=== PATIENT | female | born 1990 | race Hispanic/Latino ===

== ENCOUNTER 2020-09-23 13:56 | Outpatient (CLI) | payer BC ==
[2020-09-23 14:49] LABS: Hematocrit 35.2 % (30.3-42.9); Hemoglobin 12.1 gm/dl (10.1-14.3); Mean Corpuscular HGB Conc 34 % (30-34); Mean Corpuscular Volume 92 fl (79-97); Platelet Count 221 K/mm3 (140-440); Red Blood Count 3.83 M/mm3 (3.65-5.03); Red Cell Distribution Width 12.8 % (13.2-15.2)
[2020-09-23 15:24] LABS: Hepatitis C Virus Antibody Non-Reactive (NonReactive)
== END 2020-09-23 13:57 | disposition home or self-care (01) ==
LOC: LAB 13:56
PROVIDERS: ATTEND Nurse Practitioner Women's Health
DX: Z34.81 Encounter for supervision of other normal pregnancy, first trimester (principal); Z3A.11 11 weeks gestation of pregnancy
CPT/HCPCS: 36415; 85027; 86592; 86706; 86762; 86803; 87806

== ENCOUNTER 2020-12-07 14:15 | Outpatient (CLI) | payer BC | END 2020-12-07 14:16 | disposition home or self-care (01) | LOC: LAB 14:15 | PROVIDERS: ATTEND Nurse Practitioner Women's Health | DX: Z34.82 Encounter for supervision of other normal pregnancy, second trimester (principal); Z3A.14 14 weeks gestation of pregnancy | CPT/HCPCS: 86900; 86901 ==

== ENCOUNTER 2021-01-19 08:49 | Outpatient (CLI) | payer BC ==
[2021-01-19 10:31] LABS: Hematocrit 33.1 % (30.3-42.9); Hemoglobin 11.6 gm/dl (10.1-14.3)
== END 2021-01-19 08:50 | disposition home or self-care (01) ==
LOC: LAB 08:49
PROVIDERS: ATTEND Nurse Practitioner Women's Health
DX: Z34.82 Encounter for supervision of other normal pregnancy, second trimester (principal); Z3A.24 24 weeks gestation of pregnancy
CPT/HCPCS: 36415; 82951; 82962; 85014; 85018

== ENCOUNTER 2021-04-12 12:19 | Outpatient (CLI) | payer BC ==
[2021-05-05 08:20] LABS: HIV-1 Antibody Differentiation SEE SCANNED RESULT; HIV-2 Antibody Differentiation SEE SCANNED RESULT
== END 2021-04-12 12:20 | disposition home or self-care (01) ==
LOC: LAB 12:19
PROVIDERS: ATTEND Nurse Practitioner Women's Health
DX: Z34.83 Encounter for supervision of other normal pregnancy, third trimester (principal); Z30.2 Encounter for sterilization; B97.35 Human immunodeficiency virus, type 2 [HIV 2] as the cause of diseases classified elsewhere; Z3A.35 35 weeks gestation of pregnancy
CPT/HCPCS: 36415; 86592; 86689; 87591

== ENCOUNTER 2021-04-23 08:52 | Inpatient (IN) | payer BC ==
[2021-04-23] MEDS ORDERED: METOCLOPRAMIDE 10 MG/2 ML INJ IV ONE (13:01)
[2021-04-23] MEDS ORDERED: BICITRA ORAL LIQD 30ML PO ONE (13:01)
[2021-04-23] MEDS ORDERED: FAMOTIDINE 20 MG/2 ML INJ IV ONE (13:01)
--- NOTE | 2021-04-23 13:14 | History and Physical Report ---
History of Present Illness Date of examination: 04/23/21 Chief complaint: Labor, breech presentation History of present illness: This is a 31 year-old female at 38 weeks gestation who presents complaining of ROM and contractions. Evaluation was negative for ROM however she had cervical change for 1cm to 3cm. US revealed Breech presentation, will proceed with delivery. EDC Confirmation: 05/06/2021 Gestational Age: 6 6/7 weeks Past History : 3 Term Births: 2 Premature Births: 0 Living Children: 2 Para: 2 Mult. Births: 0 Prev : 0 Prev. attempt? 0 Aborta: 0 Elect. Ab: 0 Spont. Ab: 0 Ectopics: 0 # 1 Delivery date: 04/29/2015 Weeks Gestation: term Delivery type: Vaginal Anesthesia type: epidural Delivery location: [facility] Sex: female weight: 8.13 Name: vesna Comments: none # 2 Delivery date: 07/05/2016 Weeks Gestation: 40 Delivery type: Vaginal Anesthesia type: epidural Delivery location: [facility] Infant Sex: female weight: 8.13 Comments: none Risk Factors: Smoked Tobacco Use: Never smoker Smokeless Tobacco Use: Never Passive smoke exposure: no Drug use: no HIV high-risk behavior: low risk Alcohol use: no Dietary Counseling: pn yes Past Medical History: Reviewed history from 09/02/2014 and no changes required: Asthma--exercise induced Past Surgical History: Reviewed history from 09/02/2014 and no changes required: 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 Past Medical History Abnormal PAP: negative BECKY Exposure: negative Infertility: negative Uterine Anomaly: negative Uterine Surgery (not C/S): negative Other Gynecologic Problems: negative Social Hx: Patient is L&D Mortgage Specialist @ [employer] Smoking History: Patient has never smoked. Infection History Hx of STD: none HIV Risk Eval: low risk Hepatitis B Risk Eval: low risk Personal hx. of genital herpes: no Partner hx. of genital herpes: no Rash, Viral, or Febrile illness since last LMP? no Varicella/Chicken Pox Status: Previous Disease TB Risk: no Genetic History Congenital Heart Defect: Mom: no Dad: no Drew Disease: Mom: no Dad: no Thalassemia Mom: no Dad: no Neural Tube Defect Mom: no Dad: no Down's Syndrome Mom: no Dad: no Get-Sachs Mom: no Dad: no Sickle Cell Disease/Trait Mom: no Dad: no Hemophilia Mom: no Dad: no Muscular Dystrophy Mom: no Dad: no Cystic Fibrosis Mom: no Dad: no Ivonne Chorea Mom: no Dad: no Mental Retardation Mom: no Dad: no Fragile X Mom: no Dad: no Other Genetic/Chromosomal Disorder Mom: no Dad: no Child w/other defect Mom: no Dad: no Enviromental Exposures Enviromental Exposures Reviewed Xray Exposure: no Medication, drug, or alcohol use since LMP: no Chemical/Other Exposure: no Exposure to Cat Liter: no Hx of Parvovirus (Fifth Disease): no Occupational Exposure to Children: none FALSECurrent Allergies: No known allergies hysical Exam General appearance: well nourished, healthy appearing, no distress Chest/Lungs: respiratory effort normal, lungs clear to auscultation Abdomen/GI: soft, nontender Extremities: no discoloration or edema Past History - Obstetrical History Expected Date of Delivery: 05/06/21 Actual Gestation: 38 Week(s) 1 Day(s) : 3 Medications and Allergies Allergies Allergy/AdvReac Type Severity Reaction Status Date / Time No Known Allergies Allergy Verified 04/29/15 05:47 Home Medications Medication Instructions Recorded Confirmed Last Taken Type Omeprazole Magnesium [PriLOSEC Otc] 1 tab PO DAILY 04/29/15 07/05/16 07/04/16 10:00 History Vit-Fe Fumar-FA [ 1 tab PO DAILY 04/29/15 07/05/16 07/03/16 10:00 History Vitamin] Zantac 150 MG TAB 150 mg PO DAILY 07/05/16 07/05/16 07/04/16 10:00 History Ibuprofen [Motrin 800 MG tab] 800 mg PO TID PRN #30 tablet 07/06/16 Unknown Rx Active Meds: Active Medications Citric Acid/Sodium Citrate (Bicitra Oral Liqd 30ml) 30 ml PO ONCE ONE Stop: 04/23/21 13:02 Famotidine (Famotidine 20 Mg/2 Ml Inj) 20 mg IV ONCE ONE Stop: 04/23/21 13:02 Lactated Ringer's (Lactated Ringers) 1,000 mls @ 2,250 mls/hr IV PREOP LAUREANO Stop: 04/24/21 13:42 Oxytocin/Sodium Chloride (Pitocin/Ns 30 Unit/500ml) 30 units in 500 mls @ 0 mls/hr IV TITR LAUREANO; Protocol Cefazolin Sodium (Ancef/Sterile Water 2 Gm/20 Ml) 2 gm in 20 mls @ 80 mls/hr IV PREOP NR; Protocol Metoclopramide HCl (Metoclopramide 10 Mg/2 Ml Inj) 10 mg IV ONCE ONE Stop: 04/23/21 13:02 - Vital Signs Vital signs: Vital Signs Pulse BP 92 H 106/67 04/23/21 09:04 04/23/21 09:04 Temp Pulse Resp BP Pulse Ox 93 H 98/63 99 04/23/21 12:17 04/23/21 10:57 04/23/21 12:17 Results Result Diagrams: 04/23/21 13:14 All other labs normal. Assessment and Plan - Patient Problems (1) 38 weeks gestation of Current Visit: Yes Status: Acute (2) Breech presentation Current Visit: Yes Status: Acute Plan to address problem: Consent reviewed and signed. The risks and alternatives for this surgery were reviewed with the patient. She was informed of possible bleeding, infection, injury to bowel, bladder, ureters or other adjacent organs. The patient was instructed/informed the following: The normal length of hospital stay for this procedure. Nothing to eat or drink after midnight the evening prior to surgery. Patient was given ample opportunity to have all her questions answered before signing informed consent. (3) Active labor Current Visit: No Status: Acute
[2021-04-23] MEDS ORDERED: LACTATED RINGERS 1,000 ML IV SCH (13:15)
[2021-04-23] MEDS ORDERED: ONDANSETRON 4 MG/2 ML INJ ONE ×2 (13:22)
[2021-04-23] MEDS ORDERED: PHENYLEPHRINE/NS 1,000 MCG/10 ML SYRINGE (OR USE) IV ONE ×2 (13:22→14:09)
[2021-04-23 13:34] LABS: Hematocrit 38.3 % (30.3-42.9); Hemoglobin 13.5 gm/dl (10.1-14.3); Mean Corpuscular HGB Conc 35 % (30-34); Mean Corpuscular Volume 91 fl (79-97); Platelet Count 173 K/mm3 (140-440); Red Blood Count 4.22 M/mm3 (3.65-5.03); Red Cell Distribution Width 13.1 % (13.2-15.2)
[2021-04-23] MEDS ORDERED: OXYTOCIN DRIP 30 UNITS/500 ML BAG IV SCH ×2 (14:00→18:18)
[2021-04-23] MEDS ORDERED: ceFAZolin/Water 2 GM/20 ML 2 GM/20 ML SYRINGE IV NR (14:00)
[2021-04-23] MEDS ORDERED: SODIUM CHLORIDE 0.9% IRR 1,500 ML BOTTLE IR ONE (14:12)
[2021-04-23] MEDS ORDERED: WATER FOR IRRIG STERILE 1,500 ML BOTTLE IR ONE (14:12)
[2021-04-23] MEDS ORDERED: dexAMETHasone 20 MG/5 ML VIAL ONE (14:27)
[2021-04-23] MEDS ORDERED: KETOROLAC 30 MG/1 ML INJ ONE (14:27)
[2021-04-23] MEDS ORDERED: BUPIVACAINE/PF (0.25%) 2.5 MG/ML 30 ML VIAL INFILTRATI ONE ×2 (14:32)
--- NOTE | 2021-04-23 15:08 | Operative Report ---
Operative Report Operative Report: Date of procedure: April 23, 2021 Pre-operative diagnosis: Breech Presentation at 38 weeks in active labor Post-operative diagnosis: Same Procedure name(s): Primary low transverse section Surgeon: Jordy Maldonado MD Wrong Address Clerk: Trinidad Chicas, certified nurse upholsterer outside Anesthesia: Spinal EBL: QBL 729 cc Complications: None Findings: Normal uterus tubes and ovaries, male infant breech presentation with loose nuchal cord x1 and a true knot in the umbilical cord. The weight 7 pounds 11 ounces Apgars 8 at 1 minute 9 at 5 minutes Specimen(s): None Procedure: The patient was brought to the operating room. A spinal was placed without any complications. She was then placed in left lateral tilt. Prepped and draped in the usual sterile manner. After testing for adequate anesthesia level, a Pfannenstiel incision was made. This incision was taken down to the fascia. The fascia was then nicked in the midline. This incision was extended out laterally with Gamboa scissors. The fascia was then sharply and bluntly from the underlying rectus muscles. The rectus muscles were bluntly and sharply . The peritoneum was then entered with the trim and burr operator's fingers. This incision was spread vertically with care not to damage the bladder below. Moe retractor was then placed. The bladder flap was then formed sharply and bluntly with Metzenbaum scissors. A transverse incision was made in lower uterine segment. This incision was extended laterally with the operators fingers. The amniotic sac was then entered bluntly with the trim and burr operator's fingers. The was delivered from a footling breech positioning. Both feet were then pulled through the uterine incision followed by delivering the breech. Delivery of the upper extremities was done by first flexing and extending the the upper extremities at the elbows and after coming head was then delivered safely after reducing the loose nuchal cord. The infant was bulb suctioned on the mother's abdomen. Cord was double clamped and cut. The infant was then passed to the nursery personnel who were in attendance. The above scores were given by the nursery personnel. The placenta was then bluntly removed. The uterus was then externalized and wiped clean the remaining products. The uterine incision was closed in layers. The first incision was closed in a locking manner using 0 Vicryl. This was followed by imbricating stitch also with 0 Vicryl. This closure was hemostatic. The bladder flap was copiously irrigated and found to be hemostatic. The pelvis was copiously irrigated and found to be hemostatic. The uterus was then placed back to the patient's abdomen. The retractors were removed. The rectus muscles were inspected and found to be hemostatic. The fascia was then closed in a running manner using 0 Vicryl. This incision was hemostatic irrigation Bovie. The skin was reapproximated with 4-0 Vicryl subcuticularly. Dermabond was placed along the skin closure. The patient tolerated procedure well. Her urine was clear. The infant was admitted to the well baby nursery. The patient was accompanied to recovery room in good condition. Instrument count correct x3.
[2021-04-23] MEDS ORDERED: HYDROmorphone 1 MG/1 ML INJ IV PRN (15:20)
[2021-04-23] MEDS ORDERED: ONDANSETRON 4 MG/2 ML INJ IV PRN ×2 (15:20→18:18)
[2021-04-23] MEDS ORDERED: NALOXONE 0.4 MG/1 ML INJ IV PRN ×2 (15:20→18:18)
--- NOTE | 2021-04-23 15:21 | Anesthesia Day of Surgery ---
Anesthesia Day of Surgery - Day of Surgery Patient Examined: Yes Patient H&P Reviewed: Yes Patient is NPO: Yes Beta Blockers: No Cardiac Clearance: No Pulmonary Clearance: No Tahir's Test: N/A
--- NOTE | 2021-04-23 15:24 | Anesthesia Consultation ---
Anesthesia Consult and Med Hx Date of service: 04/23/21 - Airway Anesthetic Teeth Evaluation: Good ROM Head & Neck: Adequate Mental/Hyoid Distance: Adequate Mallampati Class: Class II Intubation Access Assessment: Probably Good - Pulmonary Exam CTA: Yes - Cardiac Exam Cardiac Exam: RRR - Pre-Operative Health Status ASA Pre-Surgery Classification: ASA2 Proposed Anesthetic Plan: Spinal - Pulmonary Hx Smoking: No Hx Asthma: Yes (excercise indused) Hx Respiratory Symptoms: No SOB: No COPD: No Home Oxygen Therapy: No Hx Pneumonia: No Hx Sleep Apnea: No - Cardiovascular System Hx Hypertension: No Hx Coronary Artery Disease: No Hx Heart Attack/AMI: No Hx Angina: No Hx Percutaneous Transluminal Coronary Angioplasty (PTCA): No Hx Cardia Arrhythmia: No Hx Pacemaker: No Hx Internal Defibrillator: No Hx Valvular Heart Disease: No Hx Heart Murmur: No Hx Peripheral Vascular Disease: No - Central Nervous System Hx Neuromuscular Disorder: No Hx Seizures: No CVA: No Hx Back Pain: No Hx Psychiatric Problems: No - Gastrointestinal Hx Ulcer: No Hx Gastroesophageal Reflux Disease: Yes - Endocrine Hx Renal Disease: No Hx End Stage Renal Disease: No Hx Cirrhosis: No Hx Liver Disease: No Hx Insulin Dependent Diabetes: No Hx Non-Insulin Dependent Diabetes: No Hx Thyroid Disease: No Hx Hypothyroidism: No Hx Hyperthyroidism: No - Hematic Hx Anemia: No Hx Sickle Cell Disease: No - Other Systems Hx Alcohol Use: No Hx Substance Use: No Hx Cancer: No Hx Obesity: Yes
--- NOTE | 2021-04-23 15:26 | Progress Note ---
Spinal Anesthesia Block - Spinal Anesthesia Block Start Time: 13:55 Stop Time: 13:58 Performed by:: NALLELY RODAS Procedure: Patient IDed, H&P reviewed, all questions and concerns were answered, and consent was signed. Timeout was performed at bedside. Patient in sitting position. Sterile prep and drape was performed. [3] ml of 1% lidocaine skin wheal at L[3]- L [4]. Needle introducer advanced. 25 gauge spinal needle advanced. Clear, free flowing CSF. negative blood, negative paresthesia. Spinal dose given. All needles removed. Patient tolerated procedure.
--- NOTE | 2021-04-23 15:32 | Progress Note ---
Regional Anesthesia Block - Regional Anesthesia Block Start Time: 15:21 Stop Time: 15:29 Performed By:: NALLELY RODAS Procedure: Patient consented for TAP block for post surgical pain management. Patient identified, monitors placed, and time out performed. TAP identified bilaterally via ultrasound. Skin prepped bilaterally with [chlorhexidine] and [22g stimuplex] needle advanced to the TAP. [Marcaine 0.25% 30ml] injected under ultrasound guidance on the [left] side. [Marcaine 0.25% 30ml] injected under ultrasound guidance on the [right] side. Negative aspiration every 5mL, No change in heart rate or rhythm. Patient tolerated the procedure well. No apparent complications seen.
[2021-04-23] MEDS ORDERED: D5W/LACTATED RINGERS 1,000 ML IV SCH (18:18)
[2021-04-23] MEDS ORDERED: WITCH HAZEL/ GLYCERIN PAD TP PRN (18:18)
[2021-04-23] MEDS ORDERED: MAGNESIUM HYDROXIDE (MOM) ORAL LIQD UDC PO PRN (18:18)
[2021-04-23] MEDS ORDERED: LANOLIN/ZINC/DIMETHICONE (LANSINOH) 7 GM TP PRN (18:18)
[2021-04-23] MEDS: SIMETHICONE 80 MG CHEW TAB PO PRN (18:46)
[2021-04-23] MEDS: KETOROLAC 30 MG/1 ML INJ IV PRN (20:38)
--- NOTE | 2021-04-23 20:38 | Post Anesthesia Evaluation ---
- Post Anesthesia Evaluation Patient Participated: Yes Airway Patent: Yes Stable Respiratory Function: Yes Nausea/Vomiting: No Temp > 96.8F: Yes Pain Manageable: Yes Adequeate Hydration: Yes Anesthesia Complications: No Block Receding Appropriately: Yes Patient on Ventilator: No
[2021-04-23] MEDS: ceFAZolin/NS 1 GM/50 ML 1 GM/50 ML BAG IV SCH (22:07)
[2021-04-24] MEDS ORDERED: HYDROcodone/ACETAMINOPHEN 5-325 MG TAB PO PRN (00:44)
[2021-04-24] MEDS: HYDROcodone/ACETAMINOPHEN 5-325 MG TAB PO PRN ×2 (00:46→00:47)
[2021-04-24] MEDS: SIMETHICONE 80 MG CHEW TAB PO PRN ×2 (00:46→10:22)
[2021-04-24] MEDS: KETOROLAC 30 MG/1 ML INJ IV PRN (04:05)
[2021-04-24] MEDS: ceFAZolin/NS 1 GM/50 ML 1 GM/50 ML BAG IV SCH (06:06)
[2021-04-24] MEDS ORDERED: MORPHINE 4 MG/1 ML INJ IV PRN ×2 (06:09→06:24)
--- NOTE | 2021-04-24 06:33 | Event Note ---
Date: 04/24/21 (Severe pain) Was called by the RN d/t patient stating that pain medication that was given was not helping with pain. Went to room and spoke with patient. Having abdominal pain. Abdomen soft, incision with no drainage at this time. Consulted with Dr. Maldonado and Faith HENRY. Will order Morphine IV and change [place] to Percocet. Pt and RN aware of medication changes. Will continue to observe pain control.
[2021-04-24] MEDS: PANTOPRAZOLE 20 MG TAB PO SCH (08:03)
[2021-04-24 08:18] LABS: Hematocrit 30.5 % (30.3-42.9); Hemoglobin 10.6 gm/dl (10.1-14.3)
[2021-04-24] MEDS ORDERED: FERROUS SULFATE 325 MG TAB PO SCH (10:00)
[2021-04-24] MEDS ORDERED: PRENATAL VIT27-FE FUMARATE-FOLIC ACID VIT TAB PO SCH (10:00)
--- NOTE | 2021-04-24 10:02 | Progress Note ---
Assessment and Plan - Patient Problems (1) delivery delivered Onset Date: ~04/23/21 Current Visit: Yes Status: Acute Plan to address problem: Pt in good spirits. States she is much better after morphine and getting OOB to void. VSS FF below umb Lochia small Incision D&I H&H 07/03 stable No s/sx of anemia Doing well s/p c/s for breech. P: continue pathway Advance diet and activity as tolerated Subjective - Subjective Date of service: 04/24/21 (pt states she is feeling much better) Principal diagnosis: Day #1 s/p section Patient reports: appetite normal, voiding normally, pain well controlled, ambulating normally : doing well Objective - Vital Signs Latest vital signs: Vital Signs Temp Pulse Resp BP Pulse Ox Pulse Ox Pulse Ox 04/24/21 07:57 97.5 F L 64 20 102/69 98 04/24/21 04:06 98.3 F 73 20 107/61 95 04/23/21 20:40 97.6 F 68 20 91/57 96 04/23/21 16:45 100 100 04/23/21 16:15 69 16 92/48 99 04/23/21 16:05 66 16 99/54 99 04/23/21 15:55 74 16 93/53 99 04/23/21 15:40 70 16 94/55 99 04/23/21 15:30 72 16 97/52 99 04/23/21 15:25 66 16 93/53 99 04/23/21 15:20 74 16 92/48 99 04/23/21 15:15 98.2 F 70 16 99/54 99 04/23/21 12:17 93 H 99 04/23/21 12:12 98 H 99 04/23/21 12:07 93 H 98 04/23/21 12:02 95 H 98 04/23/21 11:57 88 98 04/23/21 11:00 82 96 04/23/21 10:57 77 98/63 04/23/21 10:55 78 97 Intake and Output 04/23/21 04/24/21 04/24/21 22:59 06:59 14:59 Intake Total 1050 240 Output Total 600 1800 Balance 450 -1560 Intake: IV 1050 ANCEF/NS 1 GM/50 ML 1 gm 50 In 50 ml @ 100 mls/hr IV Q8H [facility] Rx#:[id number] Oral 240 Output: Urine 600 1800 Indwelling Catheter 600 1800 Other: Total, Intake Amount 240 Total, Output Amount 600 1800 Estimated Blood Loss 771 - Exam Breasts: Present: normal Cardiovascular: Present: Regular rate Lungs: Present: Clear to auscultation Abdomen: Present: normal appearance, soft Uterus: Present: normal, fundal height below umbilicus Extremities: Present: normal Deep Tendon Reflex Grade: Normal +2 Incision: Present: normal, dry, intact - Labs Labs: Abnormal lab results 04/23/21 Range/Units 13:14 WBC 14.8 H (4.5-11.0) K/mm3 MCHC 35 H (30-34) % RDW 13.1 L (13.2-15.2) %
[2021-04-24] MEDS: IBUPROFEN 800 MG TAB PO PRN ×3 (10:22→23:25)
[2021-04-24] MEDS: oxyCODONE /ACETAMINOPHEN 5-325MG TAB PO PRN ×2 (13:04→18:17)
[2021-04-24] MEDS ORDERED: IBUPROFEN 600 MG TAB PO PRN (15:11)
[2021-04-25] MEDS: oxyCODONE /ACETAMINOPHEN 5-325MG TAB PO PRN ×2 (01:35→08:11)
[2021-04-25] MEDS: IBUPROFEN 800 MG TAB PO PRN (05:58)
[2021-04-25] MEDS: PANTOPRAZOLE 20 MG TAB PO SCH (08:12)
--- NOTE | 2021-04-25 08:59 | Discharge Summary ---
Providers - Providers Date of Admission: 04/23/21 13:21 Date of discharge: 04/25/21 (pt desires d/c) Attending physician: HERACLIO HOPKINS 04/23/21 18:18 Consult to Cylinder Machine Operator [CONS] Routine Reason For Exam: Primary care physician: WILEY SILVESTRE Hospitalization Reason for admission: active labor, IUP at term Delivery: Procedure: primary low transverse (breech) Episiotomy: none Laceration: none Incision: normal, dry, intact Other procedures: none complications: none Discharge diagnosis: IUP at term delivered [place] baby: male Hospital course: uncomplicated primary section Pt resting Caring for NB. VSS FF below umb Lochia small Incision D&I H&H stable No s/sx of anemia Doing well s/p c/s P: d/c today with instructions RTO 1 w postop and circ RX on chart Condition at discharge: Good Disposition: 01 HOME / SELF CARE / HOMELESS - Discharge Diagnoses (1) delivery delivered Status: Acute Comment: RTO 1 week postop care Plan - Discharge Medications Prescriptions: Lidocain2.5%/Prilocai2.5% [Emla] 5 gm TP ONCE #1 tube Ferrous Sulfate [Feosol 325 MG tab] 325 mg PO BID #60 tablet Ibuprofen [Motrin] 800 mg PO TID PRN #30 tablet PRN Reason: Pain oxyCODONE /ACETAMINOPHEN [Percocet 5/325 mg] 1 - 2 tab PO Q6HR PRN #20 tablet PRN Reason: Pain - Provider Discharge Summary Activity: routine, no sex for 6 weeks, no heavy lifting 4 weeks, no strenuous exercise Diet: routine Instructions: routine Additional instructions: [] Smoking cessation referral if applicable(refer to patient education folder for contact #) [] Refer to [facility] Booklet Call your doctor immediately for: * Fever > 100.5 * Heavy vaginal bleeding ( >1 pad per hour) * Severe persistent headache * Shortness of breath * Reddened, hot, painful area to leg or breast * Drainage or odor from incision. * Keep incision clean and dry at all times and follow doctor's instructions regarding bathing/showering - Follow up plan Follow up: WILEY SILVESTRE CNM [Primary Care Provider] - 7 Days (Congratulations! You are a treasure! Please call [phone] to schedule your postoperative visit and your son's circumcision in 1 week. Bring the EMLA cream with you to his visit. Do NOT use at home. Take medications as prescribed. Call with any concerns.) Forms: [facility] Discharge Summary, Discharge Signature Page
[2021-04-25 09:18] VITALS: BP 105/60
--- NOTE | 2021-04-26 07:42 | Ultrasound Report ---
US OB limited, US OB BPP wo non-stress INDICATION / CLINICAL INFORMATION: well being, melva, and presentation. COMPARISON: None available. FINDINGS: BREATHING MOVEMENT = 2 GROSS BODY MOVEMENT = 2 TONE = 2 QUALITATIVE AMNIOTIC FLUID VOLUME = 2 TOTAL BIOPHYSICAL SCORE = 04/11 AMNIOTIC FLUID INDEX (cm) = 17.6 PRESENTATION: Breech. HEART RATE (beats per minute): 149-152 IMPRESSION: 1. Single live intrauterine in breech presentation. 2. biophysical profile = 04/11 3. MELVA is within normal limits, measuring 17.6 cm. Signer Name: Kamran Ruiz MD Signed: 04/23/2021 12:34 PM Workstation Name: [id number]
== END 2021-04-25 09:35 | disposition home or self-care (01) | DRG 788 ==
LOC: TRG 08:52 → APU 08:55 → TRG 11:11 → APU 11:52 → TRG 13:16 → APU 13:21 → OB 16:36
PROVIDERS: ADMIT Obstetrics & Gynecology; ATTEND Obstetrics & Gynecology
PROC: 10D00Z1 Extraction of Products of Conception, Low, Open Approach (ICD-10-PCS; principal; 2021-04-23)
PROC: 3E0T3BZ Introduction of Anesthetic Agent into Peripheral Nerves and Plexi, Percutaneous Approach (ICD-10-PCS; 2021-04-23)
DX: O32.1XX0 Maternal care for breech presentation, not applicable or unspecified (principal); O69.1XX0 Labor and delivery complicated by cord around neck, with compression, not applicable or unspecified; O99.52 Diseases of the respiratory system complicating childbirth; J45.909 Unspecified asthma, uncomplicated; O99.62 Diseases of the digestive system complicating childbirth; O99.214 Obesity complicating childbirth; K21.9 Gastro-esophageal reflux disease without esophagitis; Z3A.38 38 weeks gestation of pregnancy; Z37.0 Single live birth
CPT/HCPCS: 36415; 76815; 76819; 84112; 85014; 85018; 85027; 86592; 86762; 86850; 86900; 86901; G0378; J0690; J1100; J1170; J1885; J2270; J2370; J2405; J2765; J3490; J7121